=== PATIENT | female | born 1955 | race African-American/Black ===

== ENCOUNTER 2019-02-25 12:05 | Emergency (ER) | payer MEDICARE, MEDICAID ==
[~2019-02-25] VITALS: Ht 162.6 cm; Wt 65.3 kg
--- NOTE | 2019-02-25 12:16 | NUR ---
ED Nurse Note: pt was brought in by ambulance from [facility] c/o dislodged g tube, pt is spanish speaking only and has history of dementia. pt is calm. pt noted to have dislodged g tube, no g tube noted. pt vs within normal limit. will continue to monitor.
[2019-02-25 12:18] VITALS: BP 131/49
--- NOTE | 2019-02-25 12:35 | NUR ---
ED Nurse Note: ermd on bedside placeing g tube f12 and secured with 5cc of ns. pt denies pain. pt able to tolerate. dresing applied. will continue to monitor.
--- NOTE | 2019-02-25 12:40 | NUR ---
ED Nurse Note: xray on bedside
--- NOTE | 2019-02-25 13:31 | Emergency Room Report ---
History of Present Illness General Chief Complaint: Malfunctioning Gastric Tube Source: Medical Record Present Illness HPI 63-year-old female presents ED for evaluation. Brought in by EMS from [facility] facility. Per nursing staff patient pulled out G-tube time today. Nursing is unable to locate the G-tube. Patient has psychiatric history and is unable to provide any additional history at this time. Upon arrival patient showing no signs of distress. No reported nausea or vomiting. No other aggravating relieving factors. No other associated symptoms Allergies: Coded Allergies: No Known Allergies (Unverified , 02/25/19) Patient History Past Medical History: psych hx Past Surgical History: none Pertinent Family History: none Social History: Denies: smoking, alcohol use, drug use Now: No Immunizations: UTD Reviewed Nursing Documentation: PMH: Agreed; PSxH: Agreed Nursing Documentation-PMH Past Medical History: No History, Except For Hx Cardiac Problems: Yes - Dysphagia, Hyperlipidemia, Hypothyroidism History Of Psychiatric Problem: Yes - Schizo, Bipolar, Depression Review of Systems All Other Systems: limited Physical Exam Vital Signs Date Time Temp Pulse Resp B/P (MAP) Pulse Ox O2 Delivery O2 Flow Rate FiO2 02/25/19 12:03 70 20 131/49 (76) 100 Room Air Sp02 EP Interpretation: reviewed, normal General Appearance: no apparent distress, alert, GCS 15, non-toxic Head: normocephalic Eyes: bilateral eye normal inspection, bilateral eye PERRL ENT: normal ENT inspection Neck: normal inspection Respiratory: chest non-tender, lungs clear, normal breath sounds, speaking full sentences Cardiovascular #1: regular rate, rhythm, no edema Gastrointestinal: normal bowel sounds, non tender, soft, non-distended, no guarding, no rebound, other - Gtube site C/D/I Rectal: deferred Genitourinary: no CVA tenderness Musculoskeletal: normal inspection Neurologic: other - schizophrenia - non verbal Psychiatric: other - schizophrrenia Skin: other Lymphatic: normal inspection Procedures Additional Procedure Procedure Narrative G-tube placement Patient placed on stretcher. Old G-tube is removed by deflating the balloon using syringe. G-tube site is inspected with no contraindications to G-tube placement. G-tube slowly inserted until resistance is met; G-tube balloon is slowly filled with 5 mL of normal saline and slowly retracted back until resistance is met. G-tube placement is confirmed with KUB study using Gastrografin Medical Decision Making Diagnostic Impression: Primary Impression: Malfunction of gastrostomy tube ER Course Hospital Course 63-year-old female presents to ED for G-tube placement. [facility] Patient placed on stretcher. After initial history and physical I replaced with 12F G-tube and inflate the balloon. KUB shows G-tube in distal stomach without extravasation of contrast. G-tube adjusted accordingly Patient remained stable without any signs of distress. [facility] called and patient subsequently discharged back to facility. Dr Landa made aware that G-tube was successfully replaced and patient return to facility Diagnosis - malfunction of G tube stable and discharged back to facility. Followup with PMD. Return to ED if symptoms recur or worsen Other X-Ray Diagnostic Results Other X-Ray Diagnostic Results : X-Ray ordered: KUB # of Views/Limited Vs Complete: 1 View Indication: Other - Gtube placement Interpretation: nonspecific bowel gas, no sbo, other - Gtube in distal stomach. no extravasation of contrast Impression: Other Electronically Signed by: Electronically signed by Matti Pabon MD Last Vital Signs Date Time Temp Pulse Resp B/P (MAP) Pulse Ox O2 Delivery O2 Flow Rate FiO2 02/25/19 12:18 70 20 131/49 100 Room Air Status: improved Disposition: XFER SNF Condition: Stable Referrals: Srinath Landa DO (PCP) Matti Pabon MD Feb 25, 2019 13:31
--- NOTE | 2019-02-25 13:40 | NUR ---
ED Nurse Note: awaiting for radiology reading on g tube placement. pt has no complaint at the moment.
--- NOTE | 2019-02-25 13:57 | Diagnostic Imaging Report ---
EXAM: XR Abdomen, 1 View CLINICAL HISTORY: TUBE PLCMT TECHNIQUE: Frontal view of the abdomen/pelvis . COMPARISON: No relevant prior studies available. FINDINGS: Intraperitoneal space: No evidence of free air below the diaphragm. Gastrointestinal tract: Moderate stool throughout the colon, which may suggest constipation. Organs: Renal shadows are obscured by bowel gas. Bones/joints: Unremarkable. Soft tissues: Surgical clips project within the right lower quadrant. Tubes, lines and devices: Percutaneous gastrostomy tube identified with the tip in the region of the distal stomach. Contrast injection via the catheter with intraluminal contrast seen in the pylorus and proximal duodenum without evidence of extravasation. IMPRESSION: 1. Percutaneous gastrostomy tube identified with the tip in the region of the distal stomach. Contrast injection via the catheter with intraluminal contrast seen in the pylorus and proximal duodenum without evidence of extravasation. 2. Moderate stool throughout the colon, which may suggest constipation.
--- NOTE | 2019-02-25 14:13 | NUR ---
ED Nurse Note: called [facility] and able to give report to aayush cheney.
[2019-02-25 14:17] VITALS: BP 120/80
[2019-02-25 15:15] VITALS: BP 120/80
--- NOTE | 2019-02-25 15:15 | NUR ---
ED Nurse Note: report given to 2 emt of [facility]. pt left the ed with stable vs and with all belongings.
== END 2019-02-25 15:15 ==
LOC: EDBD 12:05 → EMR 12:30
DX: K94.23 Gastrostomy malfunction (principal); E78.5 Hyperlipidemia, unspecified; E03.9 Hypothyroidism, unspecified; F20.9 Schizophrenia, unspecified; F31.9 Bipolar disorder, unspecified; F32.9 Major depressive disorder, single episode, unspecified
CPT/HCPCS: 74018; 99283

== ENCOUNTER 2019-04-17 10:56 | Inpatient (IN) | payer MEDICARE, MEDICAID ==
[~2019-04-17] VITALS: Ht 165.1 cm; Wt 59.0 kg
[2019-04-17 11:15] VITALS: BP 123/66
[2019-04-17] MEDS ORDERED: CALCIUM 500 MG1 EAC2 GT (11:23)
[2019-04-17] MEDS ORDERED: FANAPT4 MG GT (11:23)
[2019-04-17] MEDS ORDERED: SIMVASTATIN10 MG GT (11:23)
[2019-04-17] MEDS ORDERED: VITAMIN D400 INTLU GT (11:23)
[2019-04-17] MEDS ORDERED: SYNTHROID200 MCG GT (11:23)
[2019-04-17] MEDS ORDERED: COLACE100 MG GT (11:23)
[2019-04-17] MEDS ORDERED: ACETAMINOPHEN120 MG GT (11:23)
[2019-04-17] MEDS ORDERED: PAXIL10 MG/5 ML GT (11:23)
[2019-04-17 12:15] LABS: BASOPHILS % (AUTO) 0.5 % (0.0-2.0); EOSINOPHILS % (AUTO) 1.1 % (0.0-3.0); HEMATOCRIT 38.5 % (37.0-47.0); HEMOGLOBIN 12.9 G/DL (12.0-16.0); LYMPHOCYTES % (AUTO) 32.8 % (20.0-45.0); MEAN CORPUSCULAR VOLUME 92 FL (80-99); NEUTROPHILS % (AUTO) 60.6 % (45.0-75.0); PLATELET COUNT 155 K/UL (150-450); RED BLOOD COUNT 4.21 M/UL (4.20-5.40); RED CELL DISTRIBUTION WIDTH 11.7 % (11.6-14.8)
[2019-04-17 12:21] LABS: ANION GAP 7 mmol/L (5-15); BLOOD UREA NITROGEN 18 mg/dL (7-18); CALCIUM 8.4 MG/DL (8.5-10.1); CARBON DIOXIDE 25 MMOL/L (21-32); CHLORIDE 106 MMOL/L (98-107); CREATININE 0.8 MG/DL (0.55-1.30); POTASSIUM 3.8 MMOL/L (3.5-5.1); SODIUM 138 MMOL/L (136-145)
[2019-04-17 12:27] LABS: ALANINE AMINOTRANSFERASE 12 U/L (12-78); ALKALINE PHOSPHATASE 66 U/L (46-116); ASPARTATE AMINO TRANSFERASE 10 U/L (15-37); BILIRUBIN,TOTAL 0.2 MG/DL (0.2-1.0)
--- NOTE | 2019-04-17 12:30 | NUR ---
ED Nurse Note: Tiago was BIBA from [facility] for G tube replacment. AAO x 1, VSS at this time.
--- NOTE | 2019-04-17 12:40 | NUR ---
ED Nurse Note: Daysi Cody was not able to replace G tube. Patient is going to be admited to
--- NOTE | 2019-04-17 14:08 | NUR ---
ED Nurse Note: Patient was admited to [facility] due to G tube replacment. Patient was transfered to the unit via gurney, with all belongings. AAO x1, VSS at this time.
[2019-04-17 14:18] VITALS: BP 145/75
--- NOTE | 2019-04-17 14:22 | NUR ---
NURSE NOTES: received pt awake alert , nonverbal, gt soft nontender, no gtube , previous gt site no bleeding, no leakage. sacral area is intact, bilateral heels intact, no c/o pain, no distress. left msg for dr Potter re admit order. call light within reach. bed in lowest position, locked.
[2019-04-17] MEDS ORDERED: LORazepam Inj 2mg/ml 1ml IV PRN (15:30)
[2019-04-17] MEDS ORDERED: Morphine Sulfate 2mg/ml Inj(IV/IM USE ONLY) IVP PRN (15:30)
--- NOTE | 2019-04-17 15:32 | Emergency Room Report ---
History of Present Illness General Chief Complaint: General Complaint Source: Medical Record Present Illness HPI 63-year-old female presents ED for evaluation. Brought in by EMS from [facility] facility. Pulled out G-tube at unknown time. Noticed by nursing staff without G-tube this morning. Upon arrival patient showing no signs of distress. Unable to provide any additional history at this time. No reported nausea or vomiting. No other aggravating relieving factors. No other associated symptoms Allergies: Coded Allergies: No Known Allergies (Unverified , 02/25/19) Patient History Past Medical History: psych hx Past Surgical History: none Pertinent Family History: none Social History: Denies: smoking, alcohol use, drug use Now: No Immunizations: UTD Reviewed Nursing Documentation: PMH: Agreed; PSxH: Agreed Nursing Documentation-PMH Hx Cardiac Problems: Yes - Dysphagia, Hyperlipidemia, Hypothyroidism History Of Psychiatric Problem: Yes - schizophrenia, bipolar, major depression Review of Systems All Other Systems: limited Physical Exam Vital Signs Date Time Temp Pulse Resp B/P (MAP) Pulse Ox O2 Delivery O2 Flow Rate FiO2 04/17/19 10:57 97.5 68 28 123/66 (85) 98 Room Air Sp02 EP Interpretation: reviewed, normal General Appearance: no apparent distress, GCS 15, non-toxic, thin Head: normocephalic ENT: hearing grossly normal, normal pharynx, no angioedema, normal voice Neck: full range of motion, supple/symm/no masses Respiratory: chest non-tender, lungs clear, normal breath sounds, speaking full sentences Gastrointestinal: normal bowel sounds, non tender, soft, non-distended, no guarding, no rebound, other - Gtube site C/D/I. no patency noted Rectal: deferred Genitourinary: no CVA tenderness Musculoskeletal: normal inspection Neurologic: other - nonverbal Psychiatric: other - nonverbal Skin: no rash Lymphatic: normal inspection Medical Decision Making Diagnostic Impression: Primary Impression: Complication of gastrostomy tube ER Course Hospital Course 63-year-old female presents to ED for G-tube placement. Pulled out G-tube at [facility] Clinical course Patient placed on stretcher. After initial history and physical I attempted to replace G-tube. Unable to find patent ostomy in which to place G-tube. Likely closed up Will require admission. Labs drawn. patient will be admitted to Dr Landa's service Diagnosis - complication of gtube admitted to floor in serious condition Labs Test 04/17/19 11:53 White Blood Count 7.0 K/UL (4.8-10.8) Red Blood Count 4.21 M/UL (4.20-5.40) Hemoglobin 12.9 G/DL (12.0-16.0) Hematocrit 38.5 % (37.0-47.0) Mean Corpuscular Volume 92 FL (80-99) Mean Corpuscular Hemoglobin 30.6 PG (27.0-31.0) Mean Corpuscular Hemoglobin Concent 33.4 G/DL (32.0-36.0) Red Cell Distribution Width 11.7 % (11.6-14.8) Platelet Count 155 K/UL (150-450) Mean Platelet Volume 8.9 FL (6.5-10.1) Neutrophils (%) (Auto) 60.6 % (45.0-75.0) Lymphocytes (%) (Auto) 32.8 % (20.0-45.0) Monocytes (%) (Auto) 5.0 % (1.0-10.0) Eosinophils (%) (Auto) 1.1 % (0.0-3.0) Basophils (%) (Auto) 0.5 % (0.0-2.0) Sodium Level 138 MMOL/L (136-145) Potassium Level 3.8 MMOL/L (3.5-5.1) Chloride Level 106 MMOL/L (98-107) Carbon Dioxide Level 25 MMOL/L (21-32) Anion Gap 7 mmol/L (5-15) Blood Urea Nitrogen 18 mg/dL (7-18) Creatinine 0.8 MG/DL (0.55-1.30) Estimat Glomerular Filtration Rate > 60 mL/min (>60) Glucose Level 85 MG/DL (74-106) Calcium Level 8.4 MG/DL (8.5-10.1) Total Bilirubin 0.2 MG/DL (0.2-1.0) Aspartate Amino Transf (AST/SGOT) 10 U/L (15-37) Alanine Aminotransferase (ALT/SGPT) 12 U/L (12-78) Alkaline Phosphatase 66 U/L (46-116) Total Protein 6.1 G/DL (6.4-8.2) Albumin 3.0 G/DL (3.4-5.0) Globulin 3.1 g/dL Albumin/Globulin Ratio 1.0 (1.0-2.7) Lipase 137 U/L (73-393) Last Vital Signs Date Time Temp Pulse Resp B/P (MAP) Pulse Ox O2 Delivery O2 Flow Rate FiO2 04/17/19 14:18 98.0 60 18 145/75 (98) 99 04/17/19 10:57 Room Air Status: improved Disposition: ADMITTED INPATIENT Condition: Serious Referrals: Srinath Landa DO (PCP) Matti Pabon MD Apr 17, 2019 15:32
[2019-04-17 16:00] VITALS: BP 104/68
--- NOTE | 2019-04-17 16:17 | NUR ---
NURSE NOTES: Migue Garcia has given telephone consent for EGD and PEG placement.
[2019-04-17] MEDS: D5 1/2NS 1,000 ML IV SCH (16:28)
--- NOTE | 2019-04-17 19:44 | NUR ---
NURSE NOTES: Received report from LAYLA Paige. Patient is in bed sleeping. On room air with no signs of distress or SOB. Patient NPO. IV on the right FA running D51/2NS at 50cc/hr. Bed locked and in lowest position with call light in reach. Bed alarm activated. Will continue to monitor.
--- NOTE | 2019-04-17 19:44 | NUR ---
HAND-OFF: Report given to LAYLA Gilmore.
[2019-04-17 20:00] VITALS: BP 119/66
[2019-04-17] MEDS: Heparin 5000 units/ml inj SUBQ SCH (21:00)
[2019-04-18] VITALS (8 sets, daily range): BP systolic 112–144; BP diastolic 60–74
[2019-04-18 07:06] LABS: BASOPHILS % (AUTO) 0.7 % (0.0-2.0); EOSINOPHILS % (AUTO) 1.1 % (0.0-3.0); HEMATOCRIT 34.5 % (37.0-47.0); HEMOGLOBIN 11.9 G/DL (12.0-16.0); LYMPHOCYTES % (AUTO) 48.2 % (20.0-45.0); MEAN CORPUSCULAR VOLUME 90 FL (80-99); MONOCYTES % (AUTO) 3.2 % (1.0-10.0); NEUTROPHILS % (AUTO) 46.9 % (45.0-75.0); PLATELET COUNT 141 K/UL (150-450); RED BLOOD COUNT 3.83 M/UL (4.20-5.40); RED CELL DISTRIBUTION WIDTH 11.4 % (11.6-14.8); WHITE BLOOD COUNT 6.8 K/UL (4.8-10.8)
[2019-04-18] MEDS: LR 1000ml 1,000 ML IVLG SCH (07:18)
--- NOTE | 2019-04-18 07:23 | Anethesia Preoperative Eval ---
Anesthesia Pre-op PMH/ROS General Date of Evaluation: Apr 18, 2019 Time of Evaluation: 07:20 Anesthesiologist: anahy ASA Score: ASA 3 Mallampati Score Class I : Soft palate, uvula, fauces, pillars visible Class II: Soft palate, uvula, fauces visible Class III: Soft palate, base of uvula visible Class IV: Only hard plate visible Mallampati Classification: Class II Surgeon: leslie Diagnosis: dysphagia Surgical Procedure: peg placement Anesthesia History: none Social History: smoking - nonsmoker Family History: no anesthesia problems Allergies: Coded Allergies: No Known Allergies (Unverified , 02/25/19) Medications: see eMAR Patient NPO?: Yes Past Medical History Cardiovascular: Reports: HTN, other - hyperlipidemia Gastrointestinal/Genitourinary: Reports: other - dysphagia Neurologic/Psychiatric: Reports: depression/anxiety, other - schizophrenia Endocrine: Reports: hypothyroidism Anesthesia Pre-op Phys. Exam Physician Exam Last Vital Signs Date Time Temp Pulse Resp B/P (MAP) Pulse Ox O2 Delivery O2 Flow Rate FiO2 04/17/19 21:00 Room Air 04/17/19 20:00 97.0 61 15 119/66 (83) 96 Constitutional: NAD Neurologic: CN 2-12 intact Cardiovascular: RRR Respiratory: CTA Gastrointestinal: other - stomal opening Airway Exam Mallampati Score: Class II MO: limited Neck: flexible TMD: 2fb ROM: limited Teeth: missing, loose Anesthesia Pre-op A/P Labs Hematology Test 04/17/19 11:53 04/18/19 05:20 White Blood Count 7.0 K/UL (4.8-10.8) 6.8 K/UL (4.8-10.8) Red Blood Count 4.21 M/UL (4.20-5.40) 3.83 M/UL (4.20-5.40) L Hemoglobin 12.9 G/DL (12.0-16.0) 11.9 G/DL (12.0-16.0) L Hematocrit 38.5 % (37.0-47.0) 34.5 % (37.0-47.0) L Mean Corpuscular Volume 92 FL (80-99) 90 FL (80-99) Mean Corpuscular Hemoglobin 30.6 PG (27.0-31.0) 31.0 PG (27.0-31.0) Mean Corpuscular Hemoglobin Concent 33.4 G/DL (32.0-36.0) 34.4 G/DL (32.0-36.0) Red Cell Distribution Width 11.7 % (11.6-14.8) 11.4 % (11.6-14.8) L Platelet Count 155 K/UL (150-450) 141 K/UL (150-450) L Mean Platelet Volume 8.9 FL (6.5-10.1) 7.8 FL (6.5-10.1) Neutrophils (%) (Auto) 60.6 % (45.0-75.0) 46.9 % (45.0-75.0) Lymphocytes (%) (Auto) 32.8 % (20.0-45.0) 48.2 % (20.0-45.0) H Monocytes (%) (Auto) 5.0 % (1.0-10.0) 3.2 % (1.0-10.0) Eosinophils (%) (Auto) 1.1 % (0.0-3.0) 1.1 % (0.0-3.0) Basophils (%) (Auto) 0.5 % (0.0-2.0) 0.7 % (0.0-2.0) Coagulation Test 04/18/19 05:20 Prothrombin Time Pending Prothromb Time International Ratio Pending Activated Partial Thromboplast Time Pending Chemistry Test 04/17/19 11:53 04/18/19 05:20 Sodium Level 138 MMOL/L (136-145) Pending Potassium Level 3.8 MMOL/L (3.5-5.1) Pending Chloride Level 106 MMOL/L (98-107) Pending Carbon Dioxide Level 25 MMOL/L (21-32) Pending Anion Gap 7 mmol/L (5-15) Blood Urea Nitrogen 18 mg/dL (7-18) Pending Creatinine 0.8 MG/DL (0.55-1.30) Pending Estimat Glomerular Filtration Rate > 60 mL/min (>60) Pending Glucose Level 85 MG/DL (74-106) Pending Calcium Level 8.4 MG/DL (8.5-10.1) L Pending Total Bilirubin 0.2 MG/DL (0.2-1.0) Pending Aspartate Amino Transf (AST/SGOT) 10 U/L (15-37) L Pending Alanine Aminotransferase (ALT/SGPT) 12 U/L (12-78) Pending Alkaline Phosphatase 66 U/L (46-116) Pending Total Protein 6.1 G/DL (6.4-8.2) L Pending Albumin 3.0 G/DL (3.4-5.0) L Pending Globulin 3.1 g/dL Pending Albumin/Globulin Ratio 1.0 (1.0-2.7) Lipase 137 U/L (73-393) Risk Assessment & Plan Assessment: asa3 Plan: mac Status Change Before Surgery: No Pre-Antibiotics Drug: Sherry Minaya MD Apr 18, 2019 07:23
[2019-04-18 07:26] LABS: ALANINE AMINOTRANSFERASE 10 U/L (12-78); ALBUMIN 2.6 G/DL (3.4-5.0); ALKALINE PHOSPHATASE 52 U/L (46-116); ANION GAP 8 mmol/L (5-15); ASPARTATE AMINO TRANSFERASE 12 U/L (15-37); BILIRUBIN,TOTAL 0.4 MG/DL (0.2-1.0); BLOOD UREA NITROGEN 15 mg/dL (7-18); CALCIUM 8.1 MG/DL (8.5-10.1); CARBON DIOXIDE 23 MMOL/L (21-32); CHLORIDE 108 MMOL/L (98-107); CREATININE 0.8 MG/DL (0.55-1.30); POTASSIUM 4.2 MMOL/L (3.5-5.1); SODIUM 139 MMOL/L (136-145)
[2019-04-18] MEDS ORDERED: Midazolam 2mg/2ml Inj IVP PRN (07:30)
[2019-04-18] MEDS ORDERED: DiphenhydrAMINE 50mg/ml Inj IVP PRN (07:30)
[2019-04-18] MEDS ORDERED: fentaNYL 100 mcg/2 mL IV PRN (07:30)
[2019-04-18] MEDS ORDERED: Atropine Inj 1mg/10ml Syr IV PRN (07:30)
[2019-04-18] MEDS ORDERED: cefOXitin Sod 1 GM in D5W 55 ML IV PRN (08:00)
[2019-04-18] MEDS ORDERED: Propofol 200mg/20ml IV ONE (08:00)
[2019-04-18] MEDS ORDERED: NS 500ML IVPB ONE (08:00)
[2019-04-18] MEDS ORDERED: Lidocaine 1% MPF 10mg/ml 5ml ONE (08:00)
--- NOTE | 2019-04-18 08:05 | Pre-Procedure Note/Attestation ---
Pre-Procedure Note/Attestation Complete Prior to Procedure Planned Procedure: not applicable Procedure Narrative: egd/peg Indications for Procedure Pre-Operative Diagnosis: dysphagia Attestation I attest that I discussed the nature of the procedure; its benefits; risks and complications; and alternatives (and the risks and benefits of such alternatives ), prior to the procedure, with the patient (or the patient's legal hospital insurance representative). I attest that, if there was a reasonable possibility of needing a blood transfusion, the patient (or the patient's legal hospital insurance representative) was given the [facility] standardized written summary, pursuant to the [employer]efer[employer] Marla Blood Safety Act ([place] Health and Safety Code # 1645, as amended). I attest that I re-evaluated the patient just prior to the surgery and that there has been no change in the patient's H&P, except as documented below: Jakub Saldivar MD Apr 18, 2019 08:05
[2019-04-18] MEDS ORDERED: cefOXitin 1gm Inj ONE (08:06)
--- NOTE | 2019-04-18 08:06 | NUR ---
NURSE NOTES: Patient awake, alert x1, confused, screaming; on room air, no sing of distress and shortness of breath; no sing of chest pain; NPO except ice and chips/meds; patient left for GI lab for PEG placement; IV FRA 22G D51/2ND 50cc; will keep monitoring.
--- NOTE | 2019-04-18 08:06 | NUR ---
HAND-OFF: Report given to LAYLA Tate.
--- NOTE | 2019-04-18 08:10 | Short Stay Surgery H&P ---
History of Present Illness History of Present Illness Chief Complaint dysphagia HPI Julian Quach is a 63 year old female who was admitted on Apr 17, 2019 at 12: 34 for Gastrostomy Tube Malfunction Patient History Allergies: Coded Allergies: No Known Allergies (Unverified , 02/25/19) PAST MEDICAL HISTORY: (1) g tube replacment (2) Complication of gastrostomy tube Medication History Scheduled Calcium Carbonate/Vitamin D3 (Calcium 500 mg-Vit D3 600 Unit), 1 EACH GT DAILY, (Reported) Docusate Sodium* (Colace*), 100 MG GT DAILY, (Reported) Iloperidone (Fanapt), 4 MG GT TWICE A DAY, (Reported) Levothyroxine Sodium (Synthroid), 150 MCG GT DAILY, (Reported) Paroxetine Hcl (Paxil), 20 MG GT DAILY, (Reported) Simvastatin (Zocor), 10 MG GT BEDTIME, (Reported) Vitamin D (Vitamin D3), 2,000 UNITS GT DAILY, (Reported) Scheduled PRN Acetaminophen* (Tylenol*), 325 MG GT Q4H PRN for Mild Pain/Temp > 100.5, ( Reported) Review of Systems Cardiovascular: Reports: no symptoms Respiratory: Reports: no symptoms Skeletal: Reports: no symptoms Gastrointestinal: Reports: no symptoms Genitourinary: Reports: no symptoms Neurologic: Reports: no symptoms Endocrine: Reports: no symptoms Physical Exam Vital Signs Last Vital Signs Date Time Temp Pulse Resp B/P (MAP) Pulse Ox O2 Delivery O2 Flow Rate FiO2 04/17/19 21:00 Room Air 04/17/19 20:00 97.0 61 15 119/66 (83) 96 Labs Laboratory Tests Test 04/17/19 11:53 04/18/19 05:20 White Blood Count 7.0 K/UL (4.8-10.8) 6.8 K/UL (4.8-10.8) Red Blood Count 4.21 M/UL (4.20-5.40) 3.83 M/UL (4.20-5.40) L Hemoglobin 12.9 G/DL (12.0-16.0) 11.9 G/DL (12.0-16.0) L Hematocrit 38.5 % (37.0-47.0) 34.5 % (37.0-47.0) L Mean Corpuscular Volume 92 FL (80-99) 90 FL (80-99) Mean Corpuscular Hemoglobin 30.6 PG (27.0-31.0) 31.0 PG (27.0-31.0) Mean Corpuscular Hemoglobin Concent 33.4 G/DL (32.0-36.0) 34.4 G/DL (32.0-36.0) Red Cell Distribution Width 11.7 % (11.6-14.8) 11.4 % (11.6-14.8) L Platelet Count 155 K/UL (150-450) 141 K/UL (150-450) L Mean Platelet Volume 8.9 FL (6.5-10.1) 7.8 FL (6.5-10.1) Neutrophils (%) (Auto) 60.6 % (45.0-75.0) 46.9 % (45.0-75.0) Lymphocytes (%) (Auto) 32.8 % (20.0-45.0) 48.2 % (20.0-45.0) H Monocytes (%) (Auto) 5.0 % (1.0-10.0) 3.2 % (1.0-10.0) Eosinophils (%) (Auto) 1.1 % (0.0-3.0) 1.1 % (0.0-3.0) Basophils (%) (Auto) 0.5 % (0.0-2.0) 0.7 % (0.0-2.0) Sodium Level 138 MMOL/L (136-145) 139 MMOL/L (136-145) Potassium Level 3.8 MMOL/L (3.5-5.1) 4.2 MMOL/L (3.5-5.1) Chloride Level 106 MMOL/L (98-107) 108 MMOL/L (98-107) H Carbon Dioxide Level 25 MMOL/L (21-32) 23 MMOL/L (21-32) Anion Gap 7 mmol/L (5-15) 8 mmol/L (5-15) Blood Urea Nitrogen 18 mg/dL (7-18) 15 mg/dL (7-18) Creatinine 0.8 MG/DL (0.55-1.30) 0.8 MG/DL (0.55-1.30) Estimat Glomerular Filtration Rate > 60 mL/min (>60) > 60 mL/min (>60) Glucose Level 85 MG/DL (74-106) 83 MG/DL (74-106) Calcium Level 8.4 MG/DL (8.5-10.1) L 8.1 MG/DL (8.5-10.1) L Total Bilirubin 0.2 MG/DL (0.2-1.0) 0.4 MG/DL (0.2-1.0) Aspartate Amino Transf (AST/SGOT) 10 U/L (15-37) L 12 U/L (15-37) L Alanine Aminotransferase (ALT/SGPT) 12 U/L (12-78) 10 U/L (12-78) L Alkaline Phosphatase 66 U/L (46-116) 52 U/L (46-116) Total Protein 6.1 G/DL (6.4-8.2) L 5.3 G/DL (6.4-8.2) L Albumin 3.0 G/DL (3.4-5.0) L 2.6 G/DL (3.4-5.0) L Globulin 3.1 g/dL 2.7 g/dL Albumin/Globulin Ratio 1.0 (1.0-2.7) 1.0 (1.0-2.7) Lipase 137 U/L (73-393) Prothrombin Time 10.9 SEC (9.30-11.50) Prothromb Time International Ratio 1.0 (0.9-1.1) Activated Partial Thromboplast Time 24 SEC (23-33) Skin: normal HENT: normal Heart: normal Lungs: normal Abdomen: normal Extremities: normal Plan Plan of Care peg Attestation Are the patient's medical conditions optimized for surgery? Attestation Response: yes Jakub Saldivar MD Apr 18, 2019 08:10
--- NOTE | 2019-04-18 08:21 | Endoscopy Procedure Note ---
Endoscopy Procedure Note General Indication for Procedure: dysphagia Procedures Performed: EGD, PEG Operative Findings/Diagnosis: same Specimen: none Pt Tolerated Procedure Well: Yes Estimated Blood Loss: none Anesthesia Anesthesiologist: anahy Anesthesia: MAC Inserted Devices Implant(s) used?: No GI Core Measures 50 yrs or older w/o bx or poly: Not Applicable 10yrs. F/U recommended: Not Applicable Jakub Saldivar MD Apr 18, 2019 08:21
[2019-04-18] MEDS: Heparin 5000 units/ml inj SUBQ SCH ×2 (09:00→20:26)
--- NOTE | 2019-04-18 09:08 | NUR ---
NURSE NOTES: Received report from LAYLA Feng; patient came back from GI lab, PEG in place; will start feeding tube Vital 1.2 and goal 60cc, flush W6H, Hold >100 for residual; patient confused; dressing for PEG dry and intact. will start feeding.
--- NOTE | 2019-04-18 09:23 | Immediate Post-Op Evaluation ---
Immediate Post-Op Evalulation Immediate Post-Op Evalulation Procedure: egd/peg Date of Evaluation: Apr 18, 2019 Time of Evaluation: 08:41 IV Fluids: 250ml 0.9ns Blood Products: none Estimated Blood Loss: negligible Blood Pressure Systolic: 133 Blood Pressure Diastolic: 67 Pulse Rate: 58 Respiratory Rate: 18 O2 Sat by Pulse Oximetry: 100 Temperature (Fahrenheit): 97.4 Pain Score (1-10): 0 Nausea: No Vomiting: No Complications none Patient Status: awake, reacts, patent Hydration Status: adequate Drug: cefoxitin 1gm Given Within 1 Hr of Incision: Yes - 0805 Time Given: 08:05 Sherry Tong MD Apr 18, 2019 09:23
--- NOTE | 2019-04-18 09:24 | 48 Hour Post Anesthesia Eval ---
Post Anesthesia Evaluation Procedure: egd/peg Date of Evaluation: Apr 18, 2019 Time of Evaluation: 08:43 Blood Pressure Systolic: 137 0: 64 Pulse Rate: 53 Respiratory Rate: 18 Temperature (Fahrenheit): 97.4 O2 Sat by Pulse Oximetry: 100 Airway: patent Nausea: No Vomiting: No Pain Intensity: 0 Hydration Status: adequate Cardiopulmonary Status: stable Mental Status/LOC: patient returned to baseline Post-Anesthesia Complications: none Follow-up care needed: N/A Sherry Tong MD Apr 18, 2019 09:24
[2019-04-18] MEDS ORDERED: D5 1/2NS 1000ml IV ONE (10:12)
--- NOTE | 2019-04-18 10:38 | NUR ---
NURSE NOTES: Tube feeding started at the rate of 20cc/hr, will advance is as tolerated. The goal is 60 cc.
[2019-04-18] MEDS: D5 1/2NS 1,000 ML IV SCH (10:56)
--- NOTE | 2019-04-18 11:24 | NUR ---
RD ASSESSMENT & RECOMMENDATIONS SEE CARE ACTIVITY FOR COMPLETE ASSESSMENT DAILY ESTIMATED NEEDS: Needs based on cardiac, 61kg 25-30 kcals/kg 5924-9439 total kcals 1-1.3 g protein/kg 61-79 g total protein 25-30 mL/kg 8970-1532 total fluid mLs NUTRITION DIAGNOSIS: Swallowing difficulty R/T dysphagia as evidenced by pt is PEG dep, s/p GT replacement CURRENT TF:Vital AF 1.2 @ 60ml/hr x 24 hrs ENTERAL NUTRITION RECOMMENDATIONS: Jevity 1.2 @ 60ml/hr x 24hrs to provide 1440ml, 1728kcal, 80g prot, 1156ml free water * Rec Jevity 1.2 - elemental formula of Vital AF is not indicated. * Initiate Jevity 1.2 @ 20ml/hr x 6 hrs, advance 10ml q 4-6 hrs as tolerated to goal rate. * HOB over 30 degrees/ water flush per MD ADDITIONAL RECOMMENDATIONS: * Calibrated bedscale wt for accurate CBW -> Bedscale reads -2kg this AM * Monitor lytes daily, replete as needed * DIAGNOSTICS TECH evaluation for possible oral diet -> pt on [facility] soft diet (in addition to TF) [employer]
--- NOTE | 2019-04-18 12:08 | Consultation ---
History of Present Illness General Date patient seen: Apr 18, 2019 Chief Complaint: General Complaint Present Illness HPI 63-year-old female with hx of Dysphagia, Hyperlipidemia, Hypothyroidism presented to ED for evaluation G-tube. Noticed by nursing staff that G- tube was out this morning. Upon arrival in ER patient showing no signs of distress. Unable to provide any additional history at this time. Patient looks awake, but doesn't speak or seem to understand simple questions or commands. Allergies: Coded Allergies: No Known Allergies (Unverified , 02/25/19) Medication History Scheduled Calcium Carbonate/Vitamin D3 (Calcium 500 mg-Vit D3 600 Unit), 1 EACH GT DAILY, (Reported) Docusate Sodium* (Colace*), 100 MG GT DAILY, (Reported) Iloperidone (Fanapt), 4 MG GT TWICE A DAY, (Reported) Levothyroxine Sodium (Synthroid), 150 MCG GT DAILY, (Reported) Paroxetine Hcl (Paxil), 20 MG GT DAILY, (Reported) Simvastatin (Zocor), 10 MG GT BEDTIME, (Reported) Vitamin D (Vitamin D3), 2,000 UNITS GT DAILY, (Reported) Scheduled PRN Acetaminophen* (Tylenol*), 325 MG GT Q4H PRN for Mild Pain/Temp > 100.5, ( Reported) Patient History Healthcare decision maker Resuscitation status Full Code Advanced Directive on File Past Medical/Surgical History Past Medical/Surgical History: (1) Severe protein-calorie malnutrition (2) G tube feedings (3) Hypothyroidism Review of Systems All Other Systems: negative except mentioned in HPI Physical Exam General Appearance: cachetic, thin Lines, tubes and drains: peripheral HEENT: normocephalic, atraumatic Neck: non-tender, normal alignment Respiratory/Chest: chest wall non-tender, lungs clear Breasts: no masses Cardiovascular/Chest: normal peripheral pulses, normal rate, regular rhythm Abdomen: normal bowel sounds, non tender Genitourinary/Rectal: normal genital exam Skin Exam: normal pigmentation Last 24 Hour Vital Signs Date Time Temp Pulse Resp B/P (MAP) Pulse Ox O2 Delivery O2 Flow Rate FiO2 04/18/19 09:24 53 18 100 04/18/19 09:23 58 18 100 04/18/19 09:00 Room Air 04/18/19 08:49 97.8 55 23 144/74 100 Nasal Cannula 3 04/18/19 08:39 53 17 137/64 100 Nasal Cannula 3 04/18/19 08:34 51 15 135/61 100 04/18/19 08:29 97.4 58 18 133/67 100 04/18/19 08:00 98.9 61 17 120/60 (80) 98 04/17/19 21:00 Room Air 04/17/19 20:00 97.0 61 15 119/66 (83) 96 04/17/19 17:00 Room Air 04/17/19 16:00 98.0 61 17 104/68 (80) 100 04/17/19 14:18 98.0 60 18 145/75 (98) 99 04/17/19 14:08 97.5 28 123/66 98 Room Air Intake and Output 04/17/19 04/18/19 19:00 07:00 Intake Total 150 ml 600 ml Balance 150 ml 600 ml Intake IV Total 150 ml 600 ml # Voids 2 1 Laboratory Tests Test 04/18/19 05:20 White Blood Count 6.8 K/UL (4.8-10.8) Red Blood Count 3.83 M/UL (4.20-5.40) L Hemoglobin 11.9 G/DL (12.0-16.0) L Hematocrit 34.5 % (37.0-47.0) L Mean Corpuscular Volume 90 FL (80-99) Mean Corpuscular Hemoglobin 31.0 PG (27.0-31.0) Mean Corpuscular Hemoglobin Concent 34.4 G/DL (32.0-36.0) Red Cell Distribution Width 11.4 % (11.6-14.8) L Platelet Count 141 K/UL (150-450) L Mean Platelet Volume 7.8 FL (6.5-10.1) Neutrophils (%) (Auto) 46.9 % (45.0-75.0) Lymphocytes (%) (Auto) 48.2 % (20.0-45.0) H Monocytes (%) (Auto) 3.2 % (1.0-10.0) Eosinophils (%) (Auto) 1.1 % (0.0-3.0) Basophils (%) (Auto) 0.7 % (0.0-2.0) Prothrombin Time 10.9 SEC (9.30-11.50) Prothromb Time International Ratio 1.0 (0.9-1.1) Activated Partial Thromboplast Time 24 SEC (23-33) Sodium Level 139 MMOL/L (136-145) Potassium Level 4.2 MMOL/L (3.5-5.1) Chloride Level 108 MMOL/L (98-107) H Carbon Dioxide Level 23 MMOL/L (21-32) Anion Gap 8 mmol/L (5-15) Blood Urea Nitrogen 15 mg/dL (7-18) Creatinine 0.8 MG/DL (0.55-1.30) Estimat Glomerular Filtration Rate > 60 mL/min (>60) Glucose Level 83 MG/DL (74-106) Calcium Level 8.1 MG/DL (8.5-10.1) L Total Bilirubin 0.4 MG/DL (0.2-1.0) Aspartate Amino Transf (AST/SGOT) 12 U/L (15-37) L Alanine Aminotransferase (ALT/SGPT) 10 U/L (12-78) L Alkaline Phosphatase 52 U/L (46-116) Total Protein 5.3 G/DL (6.4-8.2) L Albumin 2.6 G/DL (3.4-5.0) L Globulin 2.7 g/dL Albumin/Globulin Ratio 1.0 (1.0-2.7) Microbiology Date/Time Source Procedure Growth Status 04/17/19 14:30 Rectum Received Height (Feet): 5 Height (Inches): 5.00 Weight (Pounds): 135 Medications Current Medications Medications (Trade) Dose Ordered Sig/Santi Route PRN Reason Start Time Stop Time Status Last Admin Dose Admin Cefoxitin Sodium 1 gm/Dextrose 55 ml @ 110 mls/hr ONCE PRN IV parking station attendant to GI Lab 04/18/19 08:00 04/18/19 18:00 Dextrose (Dextrose 50%) 25 ml Q30M PRN IV Hypoglycemia 04/17/19 15:30 05/17/19 15:29 Dextrose (Dextrose 50%) 50 ml Q30MIN PRN IV Hypoglycemia 04/17/19 15:30 05/17/19 15:29 Dextrose/Sodium Chloride 1,000 ml @ 50 mls/hr Q20H IV 04/17/19 15:45 05/17/19 15:44 04/18/19 10:56 Heparin Sodium (Porcine) (Heparin 5000 units/ml) 5,000 units EVERY 12 HOURS SUBQ 04/17/19 21:00 05/17/19 20:59 Lorazepam (Ativan 2mg/ml 1ml) 0.5 mg Q4H PRN IV For Anxiety 04/17/19 15:30 04/24/19 15:29 Morphine Sulfate (Morphine Sulfate) 1 mg Q4H PRN IVP For Pain 04/17/19 15:30 04/24/19 15:29 Ondansetron HCl (Zofran) 4 mg Q6H PRN IVP Nausea & Vomiting 04/17/19 15:30 05/17/19 15:29 Assessment/Plan Problem List: (1) Complication of gastrostomy tube ICD Codes: K94.20 - Gastrostomy complication, unspecified SNOMED: 168100296, 087662062, 569780457 (2) Hypothyroidism ICD Codes: E03.9 - Hypothyroidism, unspecified SNOMED: 29931421 (3) Severe protein-calorie malnutrition ICD Codes: E43 - Unspecified severe protein-calorie malnutrition SNOMED: 485591238, 769814843, 697048153 (4) Psychosis ICD Codes: F29 - Unspecified psychosis not due to a substance or known physiological condition SNOMED: 59971374 Assessment/Plan: NPO, while Gtube is out GI evaluation aspiration precaution dvt prophylaxis symptomatic treatment. Kim Potter MD Apr 18, 2019 12:08
--- NOTE | 2019-04-18 16:20 | NUR ---
CASE MANAGEMENT: INITIAL REVIEW 63 YO F BRYANT FROM [facility] CC: GT REPLACEMENT PMHx: DYSPHAGIA. SCHIZO. BIPOLAR. HLD. SI:GT MALFUNCTION T 97.5 HR 68 RR 28 B/P 123/66 SATS 98% ON RA CA 8.4 AST 10 IS: NS BOLUS X1 PATIENT ADMITTED TO MED/SURG 04/17/2019 @ 9320 DCP: PATIENT TO BE DISCHARGED TO SNF ONCE MEDICALLY CLEARED PLAN OF CARE: GI CONSULT Addendum: 04/18/19 at 1808 by Josie Yabrra CM INTERQUAL MET
--- NOTE | 2019-04-18 16:56 | Procedure Note ---
DATE OF PROCEDURE: 04/18/2019 SURGEON: Jakub Saldivar M.D. PROCEDURE: Upper endoscopy with PEG placement. ANESTHESIA: Per Dr. Doty. INSTRUMENT: Olympus adult flexible upper endoscope. INDICATION: Dysphagia. REASON FOR PROCEDURE: The procedure, risks, benefits, and possible consequences, including hemorrhage, aspiration, perforation and infection, and alternative treatments, were explained to the patient/legal guardian by Dr. Jakub Saldivar and the patient/legal guardian understood and accepted these risks. DESCRIPTION OF PROCEDURE: After informed consent was obtained and the patient was adequately sedated, Olympus upper endoscope was advanced from the mouth into the second portion of the duodenum and retroflexion was performed in the stomach. Then, under endoscopic guidance, under sterile condition, a 20-Faroese pull type of G-tube was successfully placed in the epigastric area. The distance from the tip of the tube to skin was about cm in size. The patient tolerated the procedure very well without any complication. SUMMARY OF FINDINGS: Status post successful PEG placement. RECOMMENDATIONS: 1. Abdominal binder. 2. Elevate head of the bed all the time. 3. G-tube flush, G-tube care. 4. Start tube feeding later today. 5. The patient received dose of antibiotics prior to this procedure. I want to thank Dr. Srinath Landa, for this kind referral. Jakub Saldivar M.D. DR: FLOWER JOB#: [id number] CC: Srinath Landa D.O.
--- NOTE | 2019-04-18 19:34 | NUR ---
HAND-OFF: Report given to LAYLA Gilmore.
--- NOTE | 2019-04-18 19:35 | NUR ---
NURSE NOTES: Received report from LAYLA Tate. Patient is resting in bed, awake and alert x1. On room air with no signs of distress or SOB. G-tube intact and running Vital 1.2 @ 60cc/hr. Dressing is dry and intact. Abdominal binder in place. Right FA IV in intact and running D5 1/2 NS @ 50 cc/hr. Bed locked and in lowest position. Call light in easy reach. Will continue to monitor.
--- NOTE | 2019-04-18 20:15 | History and Physical Report ---
DATE OF ADMISSION: 04/17/2019 CONSULTANTS: 1. Kim Potter M.D. 2. Jakub Saldivar M.D. 3. Brian Banegas M.D. CHIEF COMPLAINT: G-tube falling out. BRIEF HISTORY: This is a 63-year-old female from [facility] presented with the above-mentioned diagnosis, unable to reinsert in the ER per the ER physician. The patient is admitted to medical floor for further treatment. Currently, calm in bed, confused, not talking much. PAST MEDICAL HISTORY: Weakness, schizophrenia, hypothyroid, insomnia, obesity, and psych history. PAST SURGICAL HISTORY: G-tube. MEDICATIONS: Includes cefoxitin, Tylenol, fentanyl, , Zofran, hydralazine, diphenhydramine, atropine, heparin, lorazepam, morphine, and Zofran. ALLERGIES: Denies. SOCIAL HISTORY: Unable to obtain secondary to the patient's condition. REVIEW OF SYSTEMS: Unavailable. PHYSICAL EXAMINATION: GENERAL: Lethargic in bed, confused, nonverbal. VITAL SIGNS: Temperature is 98 degrees, pulse 62, respirations 19, and blood pressure 125/70. CARDIOVASCULAR: No murmurs. LUNGS: Distant and clear. ABDOMEN: Bowel sounds positive. Nontender and nondistended. EXTREMITIES: No cyanosis or edema. NEUROLOGIC: The patient is flaccid in bed, not following directions. LABORATORY AND DIAGNOSTIC DATA: Labs, at this time, show hemoglobin and hematocrit are 11.9 and 34 and platelets 141,000. BMP shows chloride 108 and calcium 8.1. Albumin 2.6. INR 1.0 and PTT is 24. ASSESSMENT: 1. G-tube out. 2. Weakness. 3. Anemia. 4. Schizophrenia. 5. Hypothyroid. 6. Insomnia. 7. Malnutrition. 8. Obesity. 9. Psych history. PLAN: 1. GI followup. 2. Reinsert G-tube. 3. Continue previous medications. 4. Psychiatric treatment. 5. PT, OT, and dietary followup. 6. Check labs in the morning. Srinath Landa D.O. DR: ELVIN JOB#: [id number] CC:
[2019-04-19] VITALS: BP 103/55
[2019-04-19 03:52] VITALS: BP 118/62
--- NOTE | 2019-04-19 04:00 | Consultation ---
DATE OF CONSULTATION: 04/18/2019 CONSULTING PHYSICIAN: Brian Banegas M.D. HISTORY OF PRESENT ILLNESS: This is a 63-year-old female patient with G-tube malfunction. She had the gastrostomy tube malfunction yesterday. She came in confused and disorganized. She said that she is feeling depressed but today she states she came with . She cannot communicate with me verbally as she is very confused and disorganized. She is able to gesture. She seems to be confused and disorganized. She came in with a G-tube malfunction, but apparently her family states she pulled out her G-tube. She has been agitated and irritable. She also has an overlying diagnosis of paranoid schizophrenia, psychiatric consultation. So, a lot of information had to be obtained through chart review since the patient is a poor historian. MEDICAL HISTORY: She has a medical history consisting of protein-calorie malnutrition, hypothyroidism, and gastrostomy tube malfunction. ALLERGIES: No known drug allergies. PSYCHOTROPIC MEDICATIONS ON ADMISSION: This patient normally takes but she also has a significant G-tube malfunction medication recently. She takes . She also takes Paxil 20 mg per G-tube daily. She is also on Ativan 0.5 IV every 4 hours p.r.n. anxiety and agitation. SUBSTANCE USE HISTORY: Denies. PAIN ASSESSMENT: 0/10. DEVELOPMENTAL PROBLEMS: Denies. FAMILY PSYCHIATRIC HISTORY: Unknown. SOCIAL HISTORY: This patient is currently living in [facility]. Financially supported by [facility] and Medicare. PSYCHIATRIC HISTORY: Paranoid schizophrenia with acute exacerbation. MENTAL STATUS EXAMINATION: This is a 63-year-old female. Appearance is disheveled. Attitude, irritable and agitated. Affect, guarded and restricted. Intellect poor. Mood, depressed and anxious. Motor activity, psychomotor agitation. Attention span is poor. Orientation x2. Speech is low volume and slurred. Thought process, disorganized and illogical. Insight and judgment is poor. DIAGNOSIS: Depression with psychotic features, rule out dementia with psychosis. Secondary and medical includes G-tube malfunction as well as protein-calorie malnutrition, gastrostomy tube malfunctioning. Psychosocial stressors, financial. Functional impairment is mild. PLAN: Since the patient cannot take medications in her G-tube, I am making this patient's medication regimen of Zyprexa Zydis 5 mg sublingual at bedtime since she cannot swallow. It was unclear if she can swallow, that is why she can put her medication under her tongue and sublingually it will dissolve in her system. A 20 minutes of insight-oriented psychotherapy provided for anxiety, psychiatric and medical condition so that she will have better impulse control and behavior on the unit. Twenty minutes of insight-oriented psychotherapy provided. Chart reviewed. Discussed with staff. Seen and assessed at bedside. Brian Banegas M.D. DR: CRISTIAN JOB#: [id number] CC:
[2019-04-19] MEDS: D5 1/2NS 1,000 ML IV SCH (06:00)
[2019-04-19 06:59] LABS: BASOPHILS % (AUTO) 0.5 % (0.0-2.0); EOSINOPHILS % (AUTO) 1.4 % (0.0-3.0); HEMATOCRIT 35.8 % (37.0-47.0); HEMOGLOBIN 12.2 G/DL (12.0-16.0); LYMPHOCYTES % (AUTO) 22.2 % (20.0-45.0); MEAN CORPUSCULAR VOLUME 91 FL (80-99); MONOCYTES % (AUTO) 3.1 % (1.0-10.0); NEUTROPHILS % (AUTO) 72.8 % (45.0-75.0); PLATELET COUNT 139 K/UL (150-450); RED BLOOD COUNT 3.91 M/UL (4.20-5.40); RED CELL DISTRIBUTION WIDTH 11.7 % (11.6-14.8); WHITE BLOOD COUNT 8.8 K/UL (4.8-10.8)
[2019-04-19 07:35] LABS: % IRON SATURATION 8 % (15-50); IRON 18 ug/dL (50-175); TOTAL IRON BINDING CAPACITY 215 ug/dL (250-450)
[2019-04-19 07:39] LABS: ANION GAP 10 mmol/L (5-15); BLOOD UREA NITROGEN 16 mg/dL (7-18); CARBON DIOXIDE 21 MMOL/L (21-32); CHLORIDE 106 MMOL/L (98-107); CREATININE 0.7 MG/DL (0.55-1.30); SODIUM 137 MMOL/L (136-145)
--- NOTE | 2019-04-19 07:48 | NUR ---
HAND-OFF: Report given to LAYLA Mayfield.
--- NOTE | 2019-04-19 07:49 | NUR ---
NURSE NOTES: Received patient awake and alert, in semi-souaz position in bed. IV site at right forearm, 22 gauge, infusing D5 1/2NS @ 50ml/hour. G-tube infusing Vital 1.2@ 60ml/hour. Bed at lowest level with 3 side rails up. Call light within reach. In no apparent distress at this time. Will continue to monitor.
[2019-04-19 08:00] VITALS: BP 120/50
--- NOTE | 2019-04-19 08:54 | General Progress Note ---
Assessment/Plan Problem List: (1) G tube feedings ICD Codes: Z93.1 - Gastrostomy status SNOMED: 760447936, 782111111, 006357001 (2) Psychosis ICD Codes: F29 - Unspecified psychosis not due to a substance or known physiological condition SNOMED: 07408123 (3) Complication of gastrostomy tube ICD Codes: K94.20 - Gastrostomy complication, unspecified SNOMED: 136974366, 470858998, 471141930 (4) Hypothyroidism ICD Codes: E03.9 - Hypothyroidism, unspecified SNOMED: 07416448 (5) Severe protein-calorie malnutrition ICD Codes: E43 - Unspecified severe protein-calorie malnutrition SNOMED: 896115118, 829445629, 215428880 (6) g tube replacment Status: stable, progressing Assessment/Plan: pt diet gtube feed dc if clear by gi Subjective Constitutional: Reports: weakness Allergies: Coded Allergies: No Known Allergies (Unverified , 02/25/19) All Systems: reviewed and negative except above Subjective sleepy in bed Objective Last 24 Hour Vital Signs Date Time Temp Pulse Resp B/P (MAP) Pulse Ox O2 Delivery O2 Flow Rate FiO2 04/19/19 08:00 98.4 74 16 120/50 (73) 98 04/19/19 03:52 98.5 69 16 118/62 (80) 96 04/19/19 00:00 98.8 68 17 103/55 (71) 97 04/18/19 21:00 Room Air 04/18/19 20:00 98.6 63 16 112/64 (80) 98 04/18/19 16:00 97.5 59 17 117/62 (80) 98 04/18/19 12:00 98.8 62 19 125/70 (88) 100 04/18/19 09:24 53 18 100 04/18/19 09:23 58 18 100 04/18/19 09:00 Room Air Intake and Output 04/18/19 04/19/19 19:00 07:00 Intake Total 1590 ml 1460 ml Balance 1590 ml 1460 ml Intake Free Water 300 ml 300 ml IV Total 850 ml 500 ml Tube Feeding 440 ml 660 ml Laboratory Tests 04/19/19 05:52: White Blood Count 8.8, Red Blood Count 3.91L, Hemoglobin 12.2, Hematocrit 35.8L , Mean Corpuscular Volume 91, Mean Corpuscular Hemoglobin 31.3H, Mean Corpuscular Hemoglobin Concent 34.2, Red Cell Distribution Width 11.7, Platelet Count 139L, Mean Platelet Volume 9.1, Neutrophils (%) (Auto) 72.8, Lymphocytes ( %) (Auto) 22.2, Monocytes (%) (Auto) 3.1, Eosinophils (%) (Auto) 1.4, Basophils (%) (Auto) 0.5, Sodium Level 137, Potassium Level 4.0, Chloride Level 106, Carbon Dioxide Level 21, Anion Gap 10, Blood Urea Nitrogen 16, Creatinine 0.7, Estimat Glomerular Filtration Rate > 60, Glucose Level 114H, Calcium Level 8.0L , Iron Level 18L, Total Iron Binding Capacity 215L, Percent Iron Saturation 8L, Unsaturated Iron Binding 197 Height (Feet): 5 Height (Inches): 5.00 Weight (Pounds): 130 General Appearance: lethargic EENT: normal ENT inspection Neck: normal alignment Cardiovascular: normal peripheral pulses, normal rate, regular rhythm Respiratory/Chest: chest wall non-tender, lungs clear, normal breath sounds Abdomen: normal bowel sounds, non tender, soft Extremities: normal inspection Edema: no edema noted Arm (L), no edema noted Arm (R), no edema noted Leg (L), no edema noted Leg (R), no edema noted Pedal (L), no edema noted Pedal (R), no edema noted Generalized Neurologic: motor weakness Skin: normal pigmentation, warm/dry Srinath Landa DO Apr 19, 2019 08:54
[2019-04-19] MEDS: Heparin 5000 units/ml inj SUBQ SCH (09:00)
[2019-04-19] MEDS ORDERED: ZyPREXA Zydis 5mg tab SL SCH (09:00)
--- NOTE | 2019-04-19 09:38 | NUR ---
DISCHARGE DISPOSITION: PLEASE READ [facility] [address] T: [phone]>>> CALL FOR REPORT [facility] ETA 1130 [facility] PAUL MADE AWARE OF THE DC AND SHE IS AGREEABLE
--- NOTE | 2019-04-19 10:39 | NUR ---
NURSE NOTES: Report given to LAYLA Fontana @ [facility].
--- NOTE | 2019-04-19 10:45 | Progress Note ---
DATE: 04/19/2019 SUBJECTIVE: The patient is a 63-year-old female. She has a gastrostomy tube, but she has altered mental status, confusion, and disorganized thought process. Cognition has declined below baseline. That is why, daily psychiatric consultation. MENTAL STATUS EXAMINATION: This is a 63-year-old female. Appearance is disheveled. Attitude, irritable and agitated. Affect, guarded and restricted. Intellect poor. Mood, depressed and anxious. Motor activity, psychomotor agitation. Attention span is poor. Orientation x2. Speech is pressured. Thought process, disorganized and illogical. Insight and judgment is poor. DIAGNOSIS: Major depressive disorder, severe, recurrent with psychotic features. PLAN: Continue treatment with medications to prevent any further decline in cognition. A 20 minutes of insight-oriented psychotherapy provided to help her identify psychiatric illness. The patient has better impulse control on the unit. Chart reviewed. Discussed with staff. Seen and assessed in her room. Brian Banegas M.D. DR: CRAIE JOB#: [id number] CC:
--- NOTE | 2019-04-19 10:48 | NUR ---
P.T NOTE: P.T EVALUATION COMPLETED AND TREATMENT INITIATED. PLEASE REFER TO P.T EVALUATION FOR CURRENT FUNCTIONAL STATUS. PATIENT IS ALERT, NON VERBAL, CONFUSED, EASILY GETS AGITATED HOWEVER COOPERATES AND FOLLOWS SIMPLE ONE STEP COMMANDS THRU GENTLE VERBAL/MANUAL AND DEMONSTRATIONAL CUES. PATIENT APPEARED GENERALLY WEAK AND NEEDED MOD A X 1 FOR SUPINE TO/FROM SIT AND MOD/MAX A X 1 FOR SIT TO/FROM STANDING TRANSITION. PATIENT ABLE TO STAND WITH FWW HOWEVER TOO WEAK TO TAKE STEPS. SKILLED SERVICES IS WARRANTED TO IMPROVE STRENGTH, BALANCE AND ENDURANCE TO INCREASED MOBILITY INDEPENDENCE AND SAFETY. RECOMMEND RETURN TO SNF WITH CONTINUE REHAB INTERVENTION. THANK YOU FOR THIS REFERRAL.
[2019-04-19] MEDS ORDERED: ZYPREXA ZYDIS5 MG ORAL (11:15)
--- NOTE | 2019-04-19 11:50 | NUR ---
NURSE NOTES: Patient discharged. IV and ID band removed. No belongings. Escorted from facility to SNF by [facility] without incident or injury
--- NOTE | 2019-04-19 21:51 | Discharge Summary ---
Discharge Summary Discharge Summary _ DATE OF ADMISSION: 04/17/2019 DATE OF DISCHARGE: 04/19/2019 DISCHARGED BY: Dr. Srinath Landa CONSULTANTS: Dr. Brian Potter BRIEF HOSPITAL COURSE: Patient is a 63-year-old female, from [facility], presented to ED due to G- tube malfunction. G-tube was falling out. She has medical history significant for schizophrenia, hypothyroidism, insomnia, and obesity. On evaluation at the ED, ED physician attempted to replace the G-tube. However , he was unable to find patent ostomy in which to place the G-tube. Patient required admission. Blood work did not show any leukocytosis. Hemoglobin and hematocrit were stable. Platelet normal. CMP normal. GI was consulted. On 04/18/2019, patient underwent upper endoscopy with PEG tube placement. A 20 Omani pull type G-tube was successfully placed in the epigastric area. Patient tolerated procedure well without any complication. G- tube feeding was eventually started later that day. Psychiatric evaluation was done. Patient was agitated and irritable. She has an underlying diagnosis of paranoid schizophrenia. She was diagnosed with depression with psychotic features. She was given Zyprexa 5 mg sublingual nightly. She was tolerating G-tube feeding well. She was given PT. She was eventually discharged back to residential. FINAL DIAGNOSES: G-tube malfunction status post EGD with PEG tube placement Major depressive disorder, severe, recurrent with psychotic features Hypothyroidism Severe protein calorie malnutrition DISPOSITION: Patient was discharged to a SNF. DISCHARGE MEDICATIONS: Refer to Discharge Medication List. I have been assigned to complete a discharge summary on this account, I was not involved with the patient's management.--VELMA Tristan Jacqueline Robles NP Apr 19, 2019 21:51
--- NOTE | 2019-04-20 03:45 | Consultation ---
DATE OF CONSULTATION: 04/19/2019 NOTE: POOR AUDIO. PSYCHOTHERAPY CONSULTATION PROGRESS NOTE CONSULTING PHYSICIAN: Anastasia Burris PsyD. TREATING ATTENDING: Srinath Landa D.O. HISTORY OF PRESENT ILLNESS: This patient is a 63-year-old female patient. She is from [facility]. This patient presents to the hospital for gastrostomy tube malfunction. She is self-referred for . She has been disorganized, confused, nodding her head indicating that she is paranoid schizophrenia. I assessed the patient. The patient is a poor historian. She is confused; however, she . The patient is recently depressed; however, suicidal and homicidal thoughts of ideation. The patient is cooperative and has had episodes of anxiety and the patient . PAST MEDICAL HISTORY: Includes a history of autism and hypothyroidism. ALLERGIES: The patient has no known drug allergies. PSYCHIATRIC HISTORY: The patient has a history of paranoid schizophrenia. She has taken psychotropic medications in the past. SOCIAL HISTORY: The patient has occasional alcohol use . The patient is a 63-year-old female patient from [facility]. Financial status fine. MENTAL STATUS EXAMINATION: The patient is alert, oriented to person. Mood is dysphoric. Affect blunted. Thought process, . Thought content, confused. She has poor attention and concentration. Poor insight, judgment, impulse control. . DIAGNOSIS: Paranoid schizophrenia. Plan is to maintain medication compliance, assist with positive coping skills, stabilizing the thoughts and behavior. Psychotherapy provided to this patient, 15 minutes. This clinician has reviewed the patient's chart and discussed the treatment with treatment team. Anastasia Burris PsyD. : ARGELIA JOB#: [id number] CC:
== END 2019-04-19 12:06 | DRG 393 ==
LOC: EDUNIT# 10:56 → EDBD 10:56 → EMR 12:27 → 4E 12:34 → EDBEDREQ 13:16
PROC: 0DH63UZ Insertion of Feeding Device into Stomach, Percutaneous Approach (ICD-10-PCS; principal; 2019-04-18 08:12)
DX: K94.23 Gastrostomy malfunction (principal); E43 Unspecified severe protein-calorie malnutrition; F33.3 Major depressive disorder, recurrent, severe with psychotic symptoms; F20.0 Paranoid schizophrenia; R13.10 Dysphagia, unspecified; Y84.8 Other medical procedures as the cause of abnormal reaction of the patient, or of later complication, without mention of misadventure at the time of the procedure; E03.9 Hypothyroidism, unspecified; G47.00 Insomnia, unspecified; E66.9 Obesity, unspecified
CPT/HCPCS: 36415; 80048; 80053; 83540; 83550; 83690; 85025; 85610; 85730; 87081; 94003; 94150; 99285